=== PATIENT | female | born 1955 | race Caucasian/White ===

== ENCOUNTER → 2023-06-05 09:29 | Outpatient (REF) | payer MEDICARE, BC, SELFPAY | LOC: HWWDC 09:29 | PROVIDERS: ATTENDING PHYSICIAN Obstetrics & Gynecology Gynecology; FAMILY PHYSICIAN Family Medicine | DX: Z12.31 Encounter for screening mammogram for malignant neoplasm of breast (principal) | CPT/HCPCS: 77063; 77067 ==

== ENCOUNTER → 2023-07-22 08:53 | Outpatient (REF) | payer MEDICARE, BC, SELFPAY ==
[2023-07-22 13:08] LABS: ALT (SGPT) 22 U/L (0-35); AST (SGOT) 26 U/L (14-36); Albumin 4.1 g/dl (3.5-5.0); Alkaline Phosphatase 112 U/L (38-126); Blood Urea Nitrogen 15 mg/dl (7-17); Calcium 9.9 mg/dl (8.4-10.2); Carbon Dioxide 26 mmol/L (22-30); Chloride 100 mmol/L (98-107); Glucose 103 mg/dl (70-99); HDL Cholesterol 50 mg/dl; LDL Cholesterol, Calculated 101 mg/dl; Potassium 4.4 mmol/L (3.5-5.1); Sodium 137 mmol/L (135-145); Total Bilirubin 0.5 mg/dl (0.2-1.3); Total Cholesterol 193 mg/dl (50-199); Total Protein 7.1 g/dl (6.3-8.2); Triglyceride 214 mg/dl (10-149); Very Low Density Lipoprotein 42 mg/dl (0-30); eGFR > 60.00
[2023-07-23 14:33] LABS: Glycohemoglobin (HgbA1c) 5.9 % (4.0-5.6)
== END ==
LOC: HWLAB 08:53
PROVIDERS: ATTENDING PHYSICIAN Family Medicine
DX: I10 Essential (primary) hypertension (principal); R73.9 Hyperglycemia, unspecified; E87.6 Hypokalemia; Z00.00 Encounter for general adult medical examination without abnormal findings; R79.9 Abnormal finding of blood chemistry, unspecified; E78.2 Mixed hyperlipidemia
CPT/HCPCS: 36415; 80053; 80061; 83036

== ENCOUNTER 2023-09-21 23:37 | Inpatient (IN) | payer MEDICARE, BC, SELFPAY ==
[2023-09-21 14:31] VITALS: BP 140/90
[2023-09-21 14:43] LABS: % Basophils 0.1 % (0-2); % Eosinophils 0.3 % (0-6); % Immature Granulocytes 0.4 % (0-0.5); % Monocytes 8.4 % (1.7-9.3); % Neutrophils 84.8 % (42.2-75.2); Absolute Immature Granulocytes 0.1 10^3/uL (0-0.05); Absolute Lymphocytes 0.9 10^3/uL (1.2-3.4); Absolute Monocytes 1.3 10^3/uL (0.1-0.6); Absolute Neutrophils 13.1 10^3/uL (1.4-6.5); Hematocrit 37.5 % (37.0-47.0); Hemoglobin 13.1 g/dL (12.0-16.0); Mean Corp Hgb Conc. 34.9 g/dL (33.0-37.0); Mean Corpuscular Hgb 29.4 pg (27.0-31.0); Mean Corpuscular Volume 84.1 fL (81.0-99.0); Mean Platelet Volume 9.4 fL (7.4-10.4); Nucleated Red Blood Cells % 0 %; Platelet Count 295 10^3/uL (130-400); Red Blood Cell Count 4.46 10^6/uL (4.20-5.40); Red Cell Dist. Width 13.6 % (11.5-14.5); White Blood Cell Count 15.4 10^3/uL (4.8-10.8)
[2023-09-21 14:59] LABS: ALT (SGPT) 27 U/L (0-35); AST (SGOT) 32 U/L (14-36); Albumin 4.3 g/dl (3.5-5.0); Alkaline Phosphatase 121 U/L (38-126); Blood Urea Nitrogen 13 mg/dl (7-17); Calcium 9.5 mg/dl (8.4-10.2); Carbon Dioxide 24 mmol/L (22-30); Chloride 98 mmol/L (98-107); Glucose 123 mg/dl (70-99); Potassium 3.8 mmol/L (3.5-5.1); Sodium 133 mmol/L (135-145); Total Bilirubin 1.3 mg/dl (0.2-1.3); Total Protein 7.2 g/dl (6.3-8.2); eGFR > 60.00
[2023-09-21 16:19] LABS: Lipase 32 U/L (23-300)
--- NOTE | 2023-09-21 16:45 | ED.PDOC.TRB ---
ED Provider Triage
-
Patient seen by provider in Triage?: Seen in Triage
A medical screening examination has been initiated by a qualified medical provider. Based on the assessment performed at this time, it has been determined that an emergent medical condition may exist and the patient has been informed that further
medical evaluation and possible additional diagnostic testing may be needed.
This is a medical evaluation conducted in person to initiate diagnostic evaluation and provide initial therapeutics. Please see further documentation by the treating clinician.
GENERAL: Alert , in no apparent distress
EYE: No visual abnormalities
NECK: No visual changes
ENT: No visual abnormalities
CARDIAC:
LUNGS: Breathing normally
ABDOMEN:
NEUROLOGICAL: Alert and oriented, no visual focal neuro deficits
SKIN: Warm and dry, skin intact.
MUSCULOSKELETAL: No edema, well perfused. Moving normally
PSYCH: Normal and appropriate interaction.
HPI/RA Plan:
68-year-old female presenting to the emergency department today for concerns of suprapubic discomfort worsening over the past few days also with burning with urination. No fevers no chest pain or shortness of breath. No significant change in bowel
movements. Patient does have reproducible tenderness directly over the bladder. Plan to check urine and further assessment.
[2023-09-21 17:44] VITALS: BP 126/79
[2023-09-21 18:52] LABS: Urine Albumin Trace (Neg - Trace); Urine Bilirubin 1+ (Negative); Urine Character Very Cloudy (Clear); Urine Color Yellow; Urine Glucose Negative (Negative); Urine Ketone 2+ (Negative); Urine Leukocyte 2+ (Negative); Urine Nitrite Positive (Negative); Urine Occult Blood Trace (Negative); Urine Specific Gravity 1.015 (<1.030); Urine Urobilinogen 2+ (Neg - 1+)
[2023-09-21 18:56] VITALS: BMI 34.5
[2023-09-21 18:59] VITALS: BP 135/86
[2023-09-21 19:00] VITALS: BP 138/85
--- NOTE | 2023-09-21 19:07 | ED.GENMED ---
History of Present Illness
General
Chief Complaint: Abdominal Symptoms
Source: patient
Exam Limitations: none
Time Seen by Provider: 09/21/23 18:58
Nursing documentation reviewed up to this point in time: agreed with
History of Present Illness
History of Present Illness:
Patient to ED with complaint of lower abdominal pain. Pain started on Thursday and continues to worsen. Stated she first noticed pain across lower abdomen but now pain has migrated to RLQ. Reports burning with urination. States she has had UTI's
in the past but this feels much different. +nausea. No vomiting or diarrhea. [employer] chilled at home but did not take her temp. Brought self to ED for eval.
Past History
Past History
ED Past Medical History: HTN
ED Past Surgical History: Cholecystectomy, Gynecological (D&E miscarriage) and Other (blepharoplasty, right carpal tunnel release 2018)
Social History
Tobacco: Non-smoker
Alcohol: None
Personal:
Living: with family
Employment: Employed
Family History
Family History: CAD
Review of Systems
Review of Systems
Allergies reviewed?: Yes
All Other Systems: ROS reviewed and negative except as documented in HPI and ROS
Constitutional: Reports chills
EENT: Reports no symptoms
Respiratory: Reports no symptoms
Cardiac: Reports no symptoms
ABD/GI: Reports abdominal pain and nausea
: Reports dysuria
Musculoskeletal: Reports no symptoms
Skin: Reports no symptoms
Neurological: Reports no symptoms
Psychiatric: Reports no symptoms
Phy Exam
General Physical Exam
General Presentation: moderate distress
General age: appears stated age
General Skin: warm and dry
General Habitus: normal
General Mental: alert
Cardiovascular Exam
Cardiovascular Exam: regular rate/rhythm and no edema
Pulmonary Exam
Pulmonary Exam: no respiratory distress
Gastrointestinal Exam
Gastrointestinal Exam: normal bowel sounds, soft, no organomegaly, non distended, no cva tenderness and guarding (RLQ)
Palpation: left upper quadrant: No tenderness, left lower quadrant: Moderate tenderness, right upper quadrant: No tenderness and right lower quadrant: Moderate tenderness
Musculoskeletal Exam
Musculoskeletal Exam: full ROM and neuro vasc intact
Skin Exam
Skin Exam: normal color, warm/dry and no rash
Psychiatric Exam
Psychiatric Exam: normal mood/affect
Course
Orders/Labs/Results
Orders:
Orders
09/21/23 14:37
Complete Blood Count/With Diff Urgent
Comprehensive Metabolic Panel Urgent
Lipase Urgent
Urinalysis Reflex To Culture Urgent
Date Specimen was Collected: 09/21/23
Time Specimen was Collected: 14:33
Urine Microscopic Reflex Cult Urgent
Urine Culture Urgent
SKYLER Source: U
Specimen Description:
Date Specimen was Collected: 09/21/23
Time Specimen was Collected: 14:33
09/21/23 19:03
Iohexol [Omnipaque] See Protocol PO NOW STA
09/21/23 19:04
CT Abd/pel W Iv And Oral Contr Urgent
Comment:
Reason For Exam: RLQ pain
09/21/23 19:10
0.9% Sodium Chloride 1000 ml [Nss] 1,000 ml IV BOLUS
09/21/23 19:31
Lactic Acid Urgent
09/21/23 19:38
Ciprofloxacin HCl [Cipro] 500 mg PO NOW STA
09/21/23 21:20
Diphenhydramine [Benadryl] 50 mg IV NOW STA
Hydrocortisone Sod Succinate [Solu-Cortef] 200 mg IV NOW STA
09/21/23 22:37
0.9% Sodium Chloride 1000 ml [Nss] 1,000 ml IV BOLUS
HYDROmorphone [Dilaudid] 0.5 mg IV NOW STA
Ondansetron Injectable [Zofran] 4 mg IV NOW STA
09/21/23 22:38
MetroNIDAZOLE 500 MG/100 ML [Flagyl 500 mg] 100 ml IV NOW
09/21/23 22:47
Ipratropium/Albuterol Sulfate [Duoneb] 3 ml .ROUTE .STK-MED ONE
09/21/23 22:48
Ipratropium/Albuterol Sulfate [Duoneb] 3 ml INH R NOW ONE
09/21/23 23:17
Admit/Transfer Patient As Directed
Co-Sign Provider:
Level of Care: Inpatient admission
Assign to:: Telemetry
Physician / Group: Robbie
Diagnosis: Diverticulitis
Reason for Telemetry: Arrhythmia
Date to Stop Telemetry: 09/24/23
Time to Stop Telemetry: 11:00
Reason for Hospitalization: IV abx
Expected length of stay greater than two midnights?: Yes
ELOS- Estimated Length of Stay in days: 3
I certify the patient meets the requirements for IP care: Yes
PRN Pain Medication Management As Directed
May give lesser potent ordered pain med per pt: Yes
preference::
Protocol:: Medication orders for pain may be administered in a
manner that supports deferring to patient preference
when the pt is:
- Requesting an ordered lesser potent pain medication.
Least to most potent pain medications are defined
as: acetaminophen < NSAID < tramadol < opioids
(morphine, oxycodone, hydromorphone).
- Requesting a lesser dose of the same medication IF
ORDERED.
- Requesting a less intrusive route of administration
if both routes are prescribed by the provider (PO <
IV).
09/21/23 23:18
Code Status As Directed
Resuscitation Status: Full Code
09/21/23 23:24
ECG [Electrocardiogram (*1)] Urgent
Reason for Study: QTc Monitoring
09/24/23 11:00
DC Protocol for Telemetry ONCE
Abnormal Lab Results
09/21/23
14:37
WBC 15.4 H 10^3/uL
(4.8-10.8)
Abs Immat Gran (auto) 0.1 H 10^3/uL
(0-0.05)
Absolute Neuts (auto) 13.1 H 10^3/uL
(1.4-6.5)
Absolute Lymphs (auto) 0.9 L 10^3/uL
(1.2-3.4)
Absolute Monos (auto) 1.3 H 10^3/uL
(0.1-0.6)
Neutrophils % 84.8 H %
(42.2-75.2)
Lymphocytes % 6.0 L %
(20.5-51.1)
Sodium 133 L mmol/L
(135-145)
Glucose 123 H mg/dl
(70-99)
Urine Ketones 2+ A
(Negative)
Ur Occult Blood Reflex Trace A
(Negative)
Urine Nitrite (Reflex) Positive A
(Negative)
Urine Bilirubin 1+ A
(Negative)
Urine Urobilinogen 2+ A
(Neg - 1+)
Leukocyte Esterase Rfl 2+ A
(Negative)
Urine WBC (Reflex) >100 A /HPF
(0-5)
Urine Bacteria (Reflex) Many A
(Negative)
09/21/23 14:37
09/21/23 14:37
Vital Signs
Initial and Last Documented VS:
Initial Vital Signs
Temp Pulse Resp BP Pulse Ox
100.0 F 110 18 140/90 99
09/21/23 14:31 09/21/23 14:31 09/21/23 14:31 09/21/23 14:31 09/21/23 14:31
Last Documented Vital Signs
Temp Pulse Resp BP Pulse Ox
99.6 F 103 23 150/79 96
09/21/23 17:44 09/21/23 21:30 09/21/23 21:30 09/21/23 21:00 09/21/23 19:15
*Critical Care Note
Total Time (30-74mins, 75-104mins- exclusive of procedures): Not Applicable
Update Note
Update Note:
Patient to ED with complaint of lower abdominal pain R>L, nausea, painful urination, chills. Symptoms started on and continue to worsen. Labs reviewed. WBV 15.4 noted. Afebrile in dept. UTI noted on UA. Given dose of cipro. Lower
abdominal pain and RLQ guarding concerning, sent for CT. CT - Diverticulitis, possible small abscess vs fluid level noted. Will admit to hospitalist for UTI, Diverticulitis r/o abscess.
Notified by nursing - patient with shaking chills, HR 130's, tachypnea. Remains afebrile. 1L NSS infusing, duoneb given, as well as pain medications. Patient breathing improved. Pulse ox 97%2L NC, LCTA. Resting comfortably.
ED Attending Note
-
Portions of this chart may have been created with voice recognition software.� Occasional wrong word or��sound alike� substitutions may have occurred due to the inherent limitations of voice recognition software.
Discharge Plan
Departure
Patient Disposition: Admit
Date of Disposition: 09/21/23
Time of Disposition: 23:08
Presentation/result/management discussed w/ accepting MD/DO: Hospitalist
Condition: Fair
Covid-19: Not Applicable
Discharge Problem:
Acute UTI, Acute diverticulitis
Prescriptions:
No Action
fluticasone propionate 1 SPRAY spray,suspension
1 spray intranasal DAILYPRN PRN (Reason: allergies)
acetaminophen 325 MG tablet
650 mg PO Q4HPRN PRN (Reason: GARCIA, mild pain, or temp >100.4F) 0RF
cholecalciferol (vitamin D3) 2,000 UNITS tablet
2,000 units PO DAILY 0RF
aspirin [Adult Aspirin Regimen] 81 MG tablet,delayed release (DR/EC)
81 mg PO DAILY Qty: 1 0RF
Theragen Tablet
1 tab PO DAILY
valsartan-hydrochlorothiazide 320-25 mg Tablet
1 tab PO DAILY
omeprazole 20 mg Tablet,Delayed Release (Dr/Ec)
20 mg PO DAILY
potassium chloride 20 mEq Tablet Extended Release
20 meq PO DAILY
Referrals:
Josey Snyder MD [Family Provider] -
Interventions
Interventions:
*Risk Screen - Suicide Last Done: 09/21/23 14:31
*General Assessment Last Done: 09/21/23 14:31
*Neglect/Abuse Screening Last Done: 09/21/23 14:31
ED- Fall Risk Assessment Last Done: 09/21/23 18:56
*ED COVID-19 Vaccine History Last Done: 09/21/23 14:31
MF-Wqjkyi-Gimjmghbvb Assessment Last Done: 09/21/23 18:56
Discharge Date and Time
Print Language: GRENADIAN
[2023-09-21 19:20] LABS: Urine Bacteria Many (Negative); Urine Red Blood Cell 0-2 /HPF (0-2); Urine White Cell >100 /HPF (0-5)
[2023-09-21] MEDS: OMNIPAQUE 50 ML PO (19:29)
[2023-09-21] MEDS: NSS 1000 IV ×2 (19:33→22:45)
[2023-09-21 19:49] LABS: Lactic Acid 1.6 mmol/L (0.7-2.0)
[2023-09-21] MEDS: CIPRO 500 MG PO (19:59)
[2023-09-21 21:00] VITALS: BP 150/79
[2023-09-21] MEDS: BENADRYL 50 MG IV (21:26)
[2023-09-21] MEDS: SOLU-CORTEF 200 MG IV (21:26)
[2023-09-21] MEDS: FLAGYL 500 MG 100 IV (22:44)
[2023-09-21] MEDS: ZOFRAN 4 MG IV (22:45)
[2023-09-21] MEDS: DILAUDID 0.5 MG IV (22:46)
[2023-09-21] MEDS: DUONEB 3 ML INH (22:48)
--- NOTE | 2023-09-21 23:23 | HPS.HSE ---
Family Physician
-
Family Physician: Josey Snyder
Chief Complaint
-
abdominal pain
History of Present Illness
68-year-old female past medical history of hypertension presenting with lower abdominal pain which started 2 days ago and continues to worsen. Patient started across the lower abdomen but now is migrated across to the right lower quadrant. He has
burning with urination. She has nausea and an episode of vomiting today. No diarrhea. She did have chills but did not check her temperature. Denies chest pain or shortness of breath.
Denies smoking. Drinks alcohol occasionally.
Medical History
Past Medical History
Past Medical History: Reports Other (hypertension, GERD)
Past Surgical History: Reports Other (Cholecystectomy, Gynecological (D&E miscarriage) and Other (blepharoplasty, right carpal tunnel release 2018))
Social History
Tobacco: Non-smoker
Alcohol: Occasional
Drug: None
Family History
Family History: Not pertinent
Allergies / Home Medications
Allergies reflects when Allergies were last updated in [facility].
Home Medications with original date entered in [facility]
Allergy/Medication List:
Allergies
Allergy/AdvReac Type Severity Reaction Status Date / Time
shellfish derived Allergy Intermediate Hives Verified 09/21/23 14:31
Cephalosporins Allergy Unknown Rash Verified 09/21/23 14:31
penicillin G Allergy Unknown Rash Verified 09/21/23 14:31
Penicillins Allergy Unknown Rash Verified 09/21/23 14:31
Home Medications
fluticasone propionate 50 mcg/actuation nasal spray,suspension 1 spray intranasal DAILYPRN PRN allergies 03/16/21
acetaminophen 325 mg tablet 650 mg (2 x 325 mg) PO Q4HPRN PRN GARCIA, mild pain, or temp >100.4F 03/17/21
aspirin 81 mg tablet,delayed release (Adult Aspirin Regimen) 81 mg PO DAILY ##1 03/17/21
cholecalciferol (vitamin D3) 50 mcg (2,000 unit) tablet 2,000 units PO DAILY 03/17/21
omeprazole 20 mg tablet,delayed release 20 mg PO DAILY 09/21/23
potassium chloride 20 mEq tablet,extended release 20 meq PO DAILY 09/21/23
therapeutic multivitamin 1 tab PO DAILY 09/21/23
valsartan 320 mg-hydrochlorothiazide 25 mg tablet 1 tab PO DAILY 09/21/23
Review of Systems
-
History Source: Patient
A 12 point ROS was completed and negative except as noted: Yes
Constitutional: Reports No Symptoms
EENT: Reports No Symptoms
Respiratory: Reports No Symptoms
Cardiac: Reports No Symptoms
Abdomen/GI: Reports See HPI
: Reports No Symptoms
Musculoskeletal: Reports No Symptoms
Skin: Reports No Symptoms
Neurological: Reports No Symptoms
Endocrine: Reports No Symptoms
Hematologic/Lymphatic: Reports No Symptoms
Psych: Reports No Symptoms
Physical Exam
Vital Signs
Vital Signs
Temp Pulse Resp BP Pulse Ox
99.6 F 103 23 150/79 96
09/21/23 17:44 09/21/23 21:30 09/21/23 21:30 09/21/23 21:00 09/21/23 19:15
Physical Exam
General: Well Developed, Well Nourished and No Apparent Distress
HEENT: NormoCephalic, Moist mucous membranes and Atraumatic
Respiratory: Clear
Cardiac: S1/S2 and Regular Rhythm; No Murmur or Rub
GI: Non Distended, Normal Bowel Sounds and Tender (RLQ ); No Organomegaly
Rectal: Deferred by Provider
Musculoskeletal: No Clubbing, No Cyanosis and No Edema
Skin: No Rash
Neuro: Nonfocal/grossly intact
Laboratory Results
-
09/21/23 14:37
09/21/23 14:37
Laboratory Results
Lactic Acid 1.6 mmol/L (0.7-2.0) 09/21/23 19:31
Total Bilirubin 1.3 mg/dl (0.2-1.3) 09/21/23 14:37
AST 32 U/L (14-36) 09/21/23 14:37
ALT 27 U/L (0-35) 09/21/23 14:37
Alkaline Phosphatase 121 U/L (38-126) 09/21/23 14:37
Lipase 32 U/L (23-300) 09/21/23 14:37
Data Reviewed
-
Lab Data: Labs Reviewed by me
Old Records: Reviewed
Impression/Plan
-
IMPRESSION:
PLAN:
# Acute sigmoid diverticulitis associated with abscess
-CT abdomen pelvis shows acute sigmoid diverticulitis with possible small accompanying abnormal focal fluid collection
-IV fluids
-Levaquin/Flagyl
-N.p.o.
-Colorectal surgery consulted
# Urinary tract infection
-Urinalysis shows greater than 100 WBC
-Urine culture pending
-Zosyn
Essential hypertension
-continue valsartan/hydrochlorothiazide
GERD
-Continue omeprazole
Full code
DVT prophylaxis�Heparin
N.p.o.
[2023-09-21 23:37] VITALS: BP 109/66
[2023-09-22] VITALS (14 sets, daily range): BP systolic 86–130; BP diastolic 56–97; BMI 34.9
[2023-09-22] MEDS: HEPARIN 5000 UNITS SC ×4 (01:55→23:05)
[2023-09-22] MEDS: D5/0.45%NSS with KCL 10 MEQ 1000 IV ×3 (02:02→22:04)
--- NOTE | 2023-09-22 03:28 | PTCARENOTE ---
Rec'd patient from ED. Pt on monitor and storage bin tender in sinus tachycardia. Pt verbalized that abdominal pain and tenderness was at an acceptable level. RN oriented pt to unit and room. Pt resting in bed with call trejo in reach. Plan of care ongoing.
[2023-09-22 05:42] LABS: Hematocrit 37.1 % (37.0-47.0); Mean Corpuscular Volume 85.7 fL (81.0-99.0); Mean Platelet Volume 9.9 fL (7.4-10.4); Platelet Count 140 10^3/uL (130-400); Red Blood Cell Count 4.33 10^6/uL (4.20-5.40); Red Cell Dist. Width 13.7 % (11.5-14.5); White Blood Cell Count 18.3 10^3/uL (4.8-10.8)
[2023-09-22 05:46] LABS: Blood Urea Nitrogen 14 mg/dl (7-17); Calcium 8.1 mg/dl (8.4-10.2); Carbon Dioxide 20 mmol/L (22-30); Chloride 99 mmol/L (98-107); Estimated Creatinine Clearance 48 ml/min; Glucose 206 mg/dl (70-99); Potassium 3.4 mmol/L (3.5-5.1); Sodium 129 mmol/L (135-145); eGFR 49.31
[2023-09-22] MEDS: FLAGYL 500 MG 100 IV ×3 (05:54→22:04)
[2023-09-22 06:33] LABS: Hepatitis C Antibody Negative (Negative)
[2023-09-22] MEDS: PROTONIX 40 MG PO (07:45)
[2023-09-22] MEDS: LEVAQUIN 100 IV (07:45)
[2023-09-22] MEDS: ASPIR LOW (ENTERIC COATED) 81 MG PO (07:45)
--- NOTE | 2023-09-22 08:15 | PTCARENOTE ---
Addendum entered by Walter Salmeron RN 09/22/23 08:24:
Assumed care at 0700. Patient was sleeping soundly, pain right lower abdomen 1 out 10 with tenderness, hypoactive BS. NPO, Meds with sips of water. BP 96/59 in the left arm and 88/59 in the right arm, held Diovan per parameters. Denies
lightheadedness at present. Instructed to call for bathroom assistance.
Original Note:
Assumed care at 0700. Patient was sleeping soundly, pain left lower abdomen 1 out 10 with tenderness, hypoactive BS. NPO, Meds with sips of water. BP 96/59 in the left arm and 88/59 in the right arm, held Diovan per parameters. Denies
lightheadedness at present. Instructed to call for bathroom assistance.
--- NOTE | 2023-09-22 08:39 | CON.CRS ---
Consultation
-
Reason for Consultation: diverticulitis
Medical History
-
Chief Complaint: abdominal pain
History of Present Illness:
Patient is a 68-year-old female who came to the ER yesterday evening with 2 days of abdominal pain, particularly in the right lower quadrant, also nausea and admitted emesis with the oral contrast for the CT prep. Admits to chills but not fever.
Denied other symptoms. She was found to have leukocytosis with a white count of 15.4. She had a low-grade fever of 100.1. She underwent a CT scan of the abdomen pelvis in which the images and report available for review. I reviewed both. This
reveals evidence for sigmoid diverticulitis with inflammation. There is no free air. There is a small 2.4 cm centrally located fluid collection with an air-fluid level which may either be an abscess or a large diverticulum. No evidence for
obstruction. The patient has never had diverticulitis in the past. She did interestingly undergo a colonoscopy by me about a year ago in September 2022 which showed sigmoid diverticulosis and a benign hyperplastic polyp. She admits that today her
pain is somewhat better than yesterday. Her white count however has bumped up from 15.4-18.3. I was asked to see her for colorectal surgical opinion.
Past Medical History
Past Medical History: HTN and Other (GERD)
Past Surgical History: Cholecystectomy and Other (D&C; carpal tunnel release, blepharoplasty)
Social History
Tobacco: Non-Smoker
Alcohol: Occasional
Family History
Family History: Reviewed & Not Pertinent
Allergies / Home Medications
Allergy/AdvReac Type Severity Reaction Status Date / Time
shellfish derived Allergy Intermediate Hives Verified 09/21/23 14:31
Cephalosporins Allergy Unknown Rash Verified 09/21/23 14:31
erythromycin base Allergy Unknown Nausea / Verified 09/22/23 03:12
Vomiting
penicillin G Allergy Unknown Rash Verified 09/21/23 14:31
Penicillins Allergy Unknown Rash Verified 09/21/23 14:31
�Medication �Instructions �Recorded �Confirmed �Type
fluticasone propionate 50 1 spray intranasal DAILYPRN PRN 03/16/21 09/21/23 History
mcg/actuation nasal allergies
spray,suspension
acetaminophen 325 mg tablet 650 mg (2 x 325 mg) PO Q4HPRN PRN 03/17/21 09/21/23 Rx
GARCIA, mild pain, or temp >100.4F
aspirin 81 mg tablet,delayed 81 mg PO DAILY ##1 03/17/21 09/21/23 Rx
release (Adult Aspirin Regimen)
cholecalciferol (vitamin D3) 50 2,000 units PO DAILY 03/17/21 09/21/23 Rx
mcg (2,000 unit) tablet
omeprazole 20 mg tablet,delayed 20 mg PO DAILY 09/21/23 09/21/23 History
release
potassium chloride 20 mEq 20 meq PO DAILY 09/21/23 09/21/23 History
tablet,extended release
therapeutic multivitamin 1 tab PO DAILY 09/21/23 09/21/23 History
valsartan 320 1 tab PO DAILY 09/21/23 09/21/23 History
mg-hydrochlorothiazide 25 mg tablet
Review of Systems
-
A 10 point review of systems was completed, and was negative except as per HPI.
Physical Exam
Vital Signs
Temp 98.6 F 09/22/23 07:41
Pulse 92 09/22/23 07:45
Resp Rate 16 09/22/23 07:41
Blood pressure 88/56 09/22/23 07:45
SaO2 96 09/22/23 08:00
09/21/23 09/22/23 09/23/23
06:59 06:59 06:59
Actual Weight 89.3 kg
Body Mass Index (BMI) 34.9
Lab Results / Allergies
09/22/23 05:05
09/22/23 05:05
WBC 18.3 10^3/uL (4.8-10.8) H 09/22/23 05:05
Hgb 13.0 g/dL (12.0-16.0) 09/22/23 05:05
Hct 37.1 % (37.0-47.0) 09/22/23 05:05
Plt Count 140 10^3/uL (130-400) D 09/22/23 05:05
Abs Immat Gran (auto) 0.1 10^3/uL (0-0.05) H 09/21/23 14:37
Neutrophils % 84.8 % (42.2-75.2) H 09/21/23 14:37
Allergy/AdvReac Type Severity Reaction Status Date / Time
shellfish derived Allergy Intermediate Hives Verified 09/21/23 14:31
Cephalosporins Allergy Unknown Rash Verified 09/21/23 14:31
erythromycin base Allergy Unknown Nausea / Verified 09/22/23 03:12
Vomiting
penicillin G Allergy Unknown Rash Verified 09/21/23 14:31
Penicillins Allergy Unknown Rash Verified 09/21/23 14:31
Physical Exam
General: Well Developed
Respiratory: Clear
Cardiac: Regular Rhythm
GI: Soft, Non Distended and Tender (Mild to moderate right lower quadrant; no rebound or guarding)
Musculoskeletal: No Clubbing, No Cyanosis and No Edema
Neuro: AO x 3
Psych: Calm
Data Reviewed
-
CT Scan: Image Personally Visualized and interpreted, Report Reviewed by me and Discussed with Patient
Labs: Labs Reviewed by me and Discussed with Patient
Old Records: Reviewed
Assessment / Plan
-
68-year-old female with her first attack of sigmoid diverticulitis normal process that in my opinion would not be amenable to IR drainage. Discussed situation with the patient in detail. For now recommend continuing maximal medical measures
including IV resuscitation, diet restriction, and IV antibiotics. Will follow along closely. Obviously if she does not improve, repeat imaging plus minus surgical intervention may be necessary. The patient understands this.
Thanks.
--- NOTE | 2023-09-22 09:15 | W.PN.HOSP.TC ---
Today's Communication/Plan
-
Repeat BMP this evening. Adjust fluid and repleat electrolytes if needed
Assessment / Plan
Assessment / Plan
PLAN:
# Acute sigmoid diverticulitis associated with abscess
-CT abdomen pelvis shows acute sigmoid diverticulitis with possible small accompanying abnormal focal fluid collection
-IV fluids
-Levaquin/Flagyl
-N.p.o.
-WBC count trending in the wrong direction. 18.3 8/5. Monitor
-Colorectal surgery recommends monitoring rather than surgery
# Urinary tract infection
-Urinalysis shows greater than 100 WBC
-Urine culture pending
-On Levaquin
#Elevated Cr
-0.7 on admission. Today 1.6.
-Monitor BMP
#Electrolyte imbalance
-Na 133 on admission today 129
-K 3.8 on admission today 3.4
-hx of transient global amnesia due to low K in the past -
- On 20mEq Kcl daily
- Likely due to IV fluids
--Urine osm normals and urine Na slightly elevated
-Repeat BMP tonight
-Will adjust fluid accordingly
#Essential hypertension
-episode of hypotension this morning /56 -- hold valsartan/hydrochlorothiazide -- consider d/c HCTZ
#GERD
-Continue omeprazole
Full code
DVT prophylaxis�Heparin
N.p.o.
Anticipated Discharge: 24 - 48 hours
Subjective/Interval History
-
Date of Service: September 22, 2023
Objective Data
-
Labs:
Laboratory Results
09/22/23
05:05
WBC 18.3 H
Hgb 13.0
Hct 37.1
Plt Count 140 D
Sodium 129 L
Potassium 3.4 L
Chloride 99
Carbon Dioxide 20 L
BUN 14
Creatinine 1.2 H
Glucose 206 H
Calcium 8.1 L
Vital Signs:
Vital Signs
Temp Pulse Resp BP Pulse Ox
98.6 F 95 16 105/64 96
09/22/23 07:41 09/22/23 09:00 09/22/23 07:41 09/22/23 08:51 09/22/23 08:00
I&O
09/21/23 09/22/23 09/23/23
06:59 06:59 06:59
Intake Total 100 / 100
Balance 100 / 100
Review of Systems
-
History Source: Patient
Respiratory: Reports No Symptoms
Cardiac: Reports No Symptoms
Abdomen/GI: Reports Abdominal Pain
Genitourinary: Reports No Symptoms
Neuro: Reports No Symptoms
Physical Exam
-
General: No Apparent Distress
Respiratory: Clear to Auscultation
Cardiac: Regular Rhythm and S1/S2
GI: Soft, Normal Bowel Sounds and Tender (RLQ Tenderness)
Musculoskeletal: No Edema
Neuro: AO x 3
Psych: Calm
--- NOTE | 2023-09-22 09:46 | W.PN.UPDATE ---
Update Note
Progress Note Update
I saw and evaluated the patient. I reviewed the resident�s note and agree with findings and plan as documented in the resident�s note.
Patient presents with first episode of acute sigmoid diverticulitis with possible small accompanying abnormal focal fluid collection (2.4 cm) such as an abscess versus air-fluid level within a large diverticulum. She is tender in the left lower
quadrant area without rebound guarding rigidity. She meets SIRS criteria and with diverticulitis meets the criteria for sepsis. Blood pressure stable.
Patient not nauseous or having any emesis. In view of pain and tenderness in the left lower quadrant we will keep her n.p.o. but will provide her with sips of clears for now. Continue with IV fluids and empiric antibiotics. Await surgery input.
Patient does have abnormal urine analysis and she does have dysuria since the weekend. Unclear if there is a UTI or bladder irritation from the adjacent sigmoid diverticulitis. Urine culture pending. On empirical antibiotics which I would
continue.
Fatty liver noted-patient denies any significant use of alcohol. Not a known diabetic. LFTs are normal but has bilirubin in the urine which raises concern for patellar biliary dysfunction. Will refer to GI as an outpatient.
KARINE evident-increased creatinine since admission noted. Patient does have some retentive symptoms with the dysuria. Check bladder scan. Continue IV fluids and follow creatinine closely. Creatinine evaluation too quick for IV contrast etiology.
Hyponatremia-check urine lites
Hypokalemia-replete potassium
Total time spent on today's encounter was 52 minutes which included time spent in counseling the patient regarding diagnosis and treatment plan as listed above, goals of care, and symptom management. Case was discussed with nursing staff,
specialists . All labs and imaging personally reviewed by me. Remainder the time spent in detailed review of previous records, lab data, imaging, and other medical provider documentation.
[2023-09-22] MEDS: KCL 40 MEQ PO (10:25)
--- NOTE | 2023-09-22 10:35 | PTCARENOTE ---
Bladder scan 164, has not voided since early am. Abdominal tenderness b/l. 40 mEq of PO K-Dur given
[2023-09-22 11:57] LABS: Osmolality Urine 843 mOsm/kg (300-900)
[2023-09-22 12:05] LABS: Urine Sodium 95 mmol/L (30-90)
--- NOTE | 2023-09-22 14:12 | CM ---
spoke with pt in room, she is prev indep, lives with her husb in a split level home with 1 step to enter. she enies any dme's or dc planning needs. plan is for dc to home when medically stable.
[2023-09-22] MEDS: TYLENOL 650 MG PO ×2 (15:18→20:29)
[2023-09-22 18:40] LABS: Blood Urea Nitrogen 14 mg/dl (7-17); Calcium 8.5 mg/dl (8.4-10.2); Carbon Dioxide 19 mmol/L (22-30); Chloride 103 mmol/L (98-107); Estimated Creatinine Clearance 71 ml/min; Glucose 118 mg/dl (70-99); Potassium 3.8 mmol/L (3.5-5.1); Sodium 129 mmol/L (135-145); eGFR > 60.00
[2023-09-23 04:05] VITALS: BP 135/82
[2023-09-23] MEDS: TYLENOL 650 MG PO ×3 (04:28→23:04)
[2023-09-23 04:38] LABS: % Basophils 0.2 % (0-2); % Eosinophils 0.6 % (0-6); % Immature Granulocytes 0.4 % (0-0.5); % Lymphocytes 6.1 % (20.5-51.1); % Monocytes 10.5 % (1.7-9.3); % Neutrophils 82.2 % (42.2-75.2); Absolute Eosinophils 0.1 10^3/uL (0-0.7); Absolute Lymphocytes 0.6 10^3/uL (1.2-3.4); Absolute Neutrophils 8.2 10^3/uL (1.4-6.5); Hematocrit 31.9 % (37.0-47.0); Hemoglobin 11.4 g/dL (12.0-16.0); Mean Corp Hgb Conc. 35.7 g/dL (33.0-37.0); Mean Corpuscular Hgb 29.4 pg (27.0-31.0); Mean Corpuscular Volume 82.2 fL (81.0-99.0); Mean Platelet Volume 10.4 fL (7.4-10.4); Nucleated Red Blood Cells % 0 %; Platelet Count 166 10^3/uL (130-400); Red Blood Cell Count 3.88 10^6/uL (4.20-5.40); Red Cell Dist. Width 13.7 % (11.5-14.5); White Blood Cell Count 9.9 10^3/uL (4.8-10.8)
[2023-09-23 05:03] LABS: Blood Urea Nitrogen 9 mg/dl (7-17); Calcium 8.6 mg/dl (8.4-10.2); Carbon Dioxide 23 mmol/L (22-30); Chloride 107 mmol/L (98-107); Estimated Creatinine Clearance 95 ml/min; Glucose 152 mg/dl (70-99); Potassium 3.9 mmol/L (3.5-5.1); Sodium 135 mmol/L (135-145); eGFR > 60.00
[2023-09-23] MEDS: FLAGYL 500 MG 100 IV (06:07)
--- NOTE | 2023-09-23 06:20 | PTCARENOTE ---
Pt c/o mild frontal GARCIA Tylenol PRN given and effective. Post void residual 147ml.
[2023-09-23 07:07] VITALS: BP 138/80
[2023-09-23 07:08] VITALS: BMI 34.6
[2023-09-23] MEDS: HEPARIN 5000 UNITS SC ×3 (08:13→23:05)
[2023-09-23] MEDS: ASPIR LOW (ENTERIC COATED) 81 MG PO (08:13)
[2023-09-23] MEDS: PROTONIX 40 MG PO (08:13)
[2023-09-23] MEDS: LEVAQUIN 100 IV (08:14)
--- NOTE | 2023-09-23 09:14 | W.PN.CRS1 ---
Today's Communication / Plan
-
Cont NPO
Assessment/Plan
-
68-year-old female with PMH of HTN, GERD who presents with abdominal pain associated with nausea, temp of 100.1, WBC 15.4, CT showing acute diverticulitis with 2.4 cm collection, concerning for abscess versus large diverticulum, being treated
nonoperatively with bowel rest and IV antibiotics
AFVSS
WBC 9.9 from 18.3
� Diverticulitis with likely 2.4 cm abscess (versus large diverticulum); continue nonoperative management, no acute surgical intervention currently indicated
�Due to significant pain on exam still, continue bowel rest with n.p.o. and IVF
� Continue pain control with Tylenol and Dilaudid as needed
� Continue antibiotics with IV Levaquin and Flagyl
� Encourage OOB and IS
� Continue DVT PPx with subcu heparin
� Continue home meds
� Appreciate hospitalist
Subjective Data
Subjective Data
Date of Service: September 23, 2023
No overnight events.
Pain still bothersome, but significantly improved.
Denies nausea/vomiting. Currently n.p.o.
+flatus +BMs +voiding
Objective Data
-
Vital Signs
Temp Pulse Resp BP Pulse Ox
98.4 F 92 16 138/80 97
09/23/23 07:05 09/23/23 07:15 09/23/23 07:05 09/23/23 07:07 09/23/23 07:06
Intake & Output
09/22/23 09/23/23 09/24/23
06:59 06:59 06:59
Intake Total 2820 / 2820
Output Total 1101 / 1101 400 / 400
Balance 1719 / 1719 -400 / -400
Intake:
Oral fluids 20 / 20
IV fluids (Total) 2400 / 2400
D5/0.45%NSS with KCL 10 MEQ 10 2400 / 2400
meq In 1,000 ml @ 100 mls/hr IV
.Q10H [facility] Rx#:[id number]
IV piggybacks 400 / 400
Output:
Urine, Voided 1101 / 1101 400 / 400
Lab Results
09/23/23 04:14
09/23/23 04:14
Physical Exam
-
General: No Acute Distress and AOx3
HEENT: Grossly Normal
Abdomen: Soft, Non Distended, Tender (Mildly to moderately tender in the suprapubic to RLQ), No Guarding and No Rebound
Neurological: No Motor Deficits
Skin: Warm and Dry
--- NOTE | 2023-09-23 09:15 | W.PN.HOSP.TC ---
Today's Communication/Plan
-
Low-dose oral Augmentin today, tomorrow high-dose Augmentin per ID. Continue to monitor diverticulitis symptoms
Assessment / Plan
Assessment / Plan
PLAN:
# Acute sigmoid diverticulitis associated with abscess
-CT abdomen pelvis shows acute sigmoid diverticulitis with possible small accompanying abnormal focal fluid collection
-IV fluids
-Levaquin/Flagyl d/c per ID
-N.p.o.
-WBC count trending well. 9.9 09/20. Monitor
-Colorectal surgery recommends monitoring rather than surgery
# Urinary tract infection
-Urinalysis shows greater than 100 WBC
-Urine culture showed E. coli resistant to cipro, sensitive to penicillin and cephalosporins which the pt noted allergies to -- ID consulted -- ID assessed allergy history and deemed it okay to start pt on Augmentin today at lower dose -- monitor --
give Augmentin at higher dose tomorrow depending of she has a reaction today
-Levaquin/Flagyl d/c per ID
#Elevated Cr
-resolved
-Monitor BMP
#Electrolyte imbalance
-resolved
-Monitor BMP
#Essential hypertension
-episode of hypotension this 09/22 87/56 -- hold valsartan/hydrochlorothiazide -- monitor
#GERD
-Continue omeprazole
Full code
DVT prophylaxis�Heparin
N.p.o.
Anticipated Discharge: 24 - 48 hours
Subjective/Interval History
-
Date of Service: September 23, 2023
Objective Data
-
Labs:
Laboratory Results
09/23/23
04:14
WBC 9.9
Hgb 11.4 L
Hct 31.9 L
Plt Count 166
Sodium 135
Potassium 3.9
Chloride 107
Carbon Dioxide 23
BUN 9
Creatinine 0.6
Glucose 152 H
Calcium 8.6
Vital Signs:
Vital Signs
Temp Pulse Resp BP Pulse Ox
98.4 F 92 16 138/80 97
09/23/23 07:05 09/23/23 07:15 09/23/23 07:05 09/23/23 07:07 09/23/23 07:06
I&O
09/22/23 09/23/23 09/24/23
06:59 06:59 06:59
Intake Total 2820 / 2820
Output Total 1101 / 1101 400 / 400
Balance 1719 / 1719 -400 / -400
Review of Systems
-
History Source: Patient
EENT: Reports No Symptoms Reported
Respiratory: Reports No Symptoms
Cardiac: Reports No Symptoms
Abdomen/GI: Reports Abdominal Pain and Nausea; Denies Vomiting
Genitourinary: Reports No Symptoms
Neuro: Reports No Symptoms
Physical Exam
-
General: Comfortable
Respiratory: Clear to Auscultation
Cardiac: Regular Rhythm and S1/S2
GI: Soft and Tender (RLQ tender)
Musculoskeletal: No Edema
Skin: Warm and Dry
Neuro: AO x 3
Psych: Calm
[2023-09-23] MEDS: D5/0.45%NSS with KCL 10 MEQ 1000 IV (09:17)
--- NOTE | 2023-09-23 09:32 | W.PN.UPDATE ---
Update Note
Progress Note Update
I saw and evaluated the patient. I reviewed the resident�s note and agree with findings and plan as documented in the resident�s note.
Patient feels her abdominal pain is improved but not gone. Had couple of loose small bowel movement today. No nausea vomiting.
Resolved dysuria.
No fever or chills.
Afebrile.
Heart rate 82 on the monitor currently.
Hemodynamically stable.
Abdomen exam shows still persistent tenderness in the left lower quadrant but no rebound guarding rigidity.
White count normalized. Some improvement in the pain noted but still with persistent tenderness.
Continue with medical management acute diverticulitis. Surgery input from today noted.
She has concurrent acute UTI with E. coli.
E. coli is isolated from urine specimen which is resistant to Cipro. Patient has significant allergies to penicillin and cephalosporin. Called lab and they did not run Levaquin sensitivities on the specimen. They now have to isolate E. coli and
tested again which would take 2 days. I will consult ID with antibiotic management.
DW ID
Tx to med surg.
Total time spent on today's encounter was 52 minutes which included time spent in counseling the patient/family regarding diagnosis and treatment plan as listed above, goals of care, and symptom management. Case was discussed with nursing staff,
specialists . All labs and imaging personally reviewed by me. Remainder the time spent in detailed review of previous records, lab data, imaging, and other medical provider documentation.
--- NOTE | 2023-09-23 10:44 | CM ---
CM following for DC planning needs.
Met w/ patient at bedside. Reviewed role of CM.
Pt. resides w/ spouse in a private, split level home. Functionally, patient is indep. w/ ADLs, mobility.
Anticipated DC plan is for home, no needs.
Will cont. to follow.
[2023-09-23 11:25] VITALS: BP 152/93
--- NOTE | 2023-09-23 11:42 | CON.ID ---
Consultation
-
Date/Time Consultation Requested: 09/23/23 9:39
Date/Time Consultation Performed: 09/23/23 11:46
Requesting Provider: Dr Christianson
Performing Provider: Dr Hinson
Reason for Consultation: ABX choice recs
Chief Complaint / Past History
Chief Complaint
abdominal pain
History of Present Illness
Ms Sullivan is a 68 year old female with history notable for cholecystectomy who presented here 09/20 for a 2 day history of increasing lower abdominal pain in the right lower quadrant (denies LLQ tenderness during my interview), nausea with vomiting, no
diarrhea. +chills and did not check her temperature. Also reporting dysuria. No chest pain or shortness of breath. No previous history of diverticulitis. Colonoscopy 1 year ago with diverticulitis and single polyp.
Reports penicillin allergy was as a child, she cannot recall the reaction, she was told there was rash, nothing more. She thinks she has tolerated amoxicillin as an adult. I called her pharmacy [facility] they can only go back one year, no
history of filling a script for a penicillin in that time.
She is on valsartan/HcTz and potassium replacement 20 mg PO qday.
Since arrival here she has been afebrile, bp initially hypotensive now stabilized, intermittent minimal tachycardia, wbc on arrival 15.4, yesterday 18 and today 9.9, hgb now 11.4, plt 166, L shift was present on arrival and has persisted, eos are
present, cr on arrival 1.2 and now 0.6, lactic acid 1.6, t bili 1.3, ast 32, alt 27, alk phos 121, CT a/p with IV and oral contrast: diverticulitis with 2.4 cm abscess vs air fluid level in large diverticulum, fatty liver, urine culture with 100K E
coli resistant to ciprofloxacin. She was started initially on ciprofloxacin/metro then switched to levofloxacin and metronidazole. Seen by colorectal surgery and no plans for surgery,
Past History
Additional Past Medical History:
hypertension, GERD
Additional Past Surgical History:
Cholecystectomy, Gynecological (D&E miscarriage) and Other (blepharoplasty, right carpal tunnel release 2018
Allergy History:
shellfish derived Allergy (Intermediate, Verified 09/21/23 14:31)
Hives
Cephalosporins Allergy (Unknown, Verified 09/21/23 14:31)
Rash
erythromycin base Allergy (Unknown, Verified 09/22/23 03:12)
Nausea / Vomiting
penicillin G Allergy (Unknown, Verified 09/21/23 14:31)
Rash
Penicillins Allergy (Unknown, Verified 09/21/23 14:31)
Rash
Medications Reviewed: Yes
Social History
Tobacco: Non-Smoker
Alcohol: Occasional
Drug: None
Family History
Family History: Not Pertinent
Review of Systems
Review of Systems
General: Chills; Negative Fever
All systems: All other systems were reviewed and were negative
Vital Signs
Temp Pulse Resp BP Pulse Ox
98.6 F 85 16 138/80 98
09/23/23 11:23 09/23/23 11:23 09/23/23 11:23 09/23/23 07:07 09/23/23 11:23
Physical Exam
Physical Exam
Constitutional: No Acute Distress
Cardiovascular: Regular Rate and S1/S2; Negative Murmur or Rub
Pulmonary: Clear and Symmetric; Negative Wheezes, Rales or Rhonchi
Gastrointestinal: Soft, Tender (RLQ), Non Distended and Normal Bowel Sounds
Skin: Warm and Dry; Negative Rash or Jaundice
Lab / Diagnostic Study Results
09/23/23 04:14
09/23/23 04:14
Abs Immat Gran (auto) 0.0 10^3/uL (0-0.05) 09/23/23 04:14
Absolute Neuts (auto) 8.2 10^3/uL (1.4-6.5) H 09/23/23 04:14
Absolute Lymphs (auto) 0.6 10^3/uL (1.2-3.4) L 09/23/23 04:14
Absolute Monos (auto) 1.0 10^3/uL (0.1-0.6) H 09/23/23 04:14
Absolute Basos (auto) 0.0 10^3/uL (0-0.2) 09/23/23 04:14
Immature Gran % 0.4 % (0-0.5) 09/23/23 04:14
Neutrophils % 82.2 % (42.2-75.2) H 09/23/23 04:14
Lymphocytes % 6.1 % (20.5-51.1) L 09/23/23 04:14
Monocytes % 10.5 % (1.7-9.3) H 09/23/23 04:14
Eosinophils % 0.6 % (0-6) 09/23/23 04:14
Basophils % 0.2 % (0-2) 09/23/23 04:14
Lactic Acid 1.6 mmol/L (0.7-2.0) 09/21/23 19:31
Microbiology Results
Micro:
09/21/23 14:37 Urine Culture - Final
Urine Escherichia coli
Assessment / Plan
Diverticulitis - first episode
Possible 2.4 cm diverticular abscess vs fluid filled diverticulum
H/o Penicillin allergy rash
Patient denies a history of cephalosporin allergy - removed
- urine culture with 100 K E coli resistant to ciprofloxacin, sensitive to ampicillin, bactrim, doxycycline
- I personally try to avoid using a quinolone when another agent in this class is resistant due to theoretical concern of emerging resistance
- at home on combination valsartan/hctz 320/25 and K 20 meq q day; currently on valsartan only
- patient >10 years since the reaction which is unknown rash, believes she has tolerated amoxicillin as an adult. We will trial augmentin, is she develops hives or a rash then next alternative would be bactrim/metronidazole and holding the Hctz/K
as her BP is relatively controlled on the losartan only here.
- for ease of timing today, I have started with the 500/125 mg dose q8 hrs today, tomorrow AM if tolerating it will switch to the 875/125 bid for a 14 day course
- follow clinically overnight
[2023-09-23] MEDS: ZOFRAN 4 MG IV (12:31)
[2023-09-23 15:05] VITALS: BP 157/94
[2023-09-23] MEDS: AUGMENTIN 500 MG/125 MG 1 TABLET PO ×2 (15:52→23:04)
--- NOTE | 2023-09-23 18:30 | PTCARENOTE ---
Pt c/o of nausea today relieved with Zofran. Pt tolerating sips of H2O. C/o of right lower quad tenderness with palpitation. Pt states she continues with small amounts of loose BMs. OOB to the bathroom independently, gait steady.
[2023-09-23] MEDS: NSS 1000 IV (18:35)
[2023-09-23 19:30] VITALS: BP 135/64
[2023-09-23 23:02] VITALS: BP 141/99
--- NOTE | 2023-09-23 23:30 | PTCARENOTE ---
Pt. received at change of shift. VSS with HR in 80s. Pt complaining of 3/10 abdominal pain for which Tylenol was administered, see MAR. Patient denies nausea at this time but does report episodes of loose stool. NSS currently infusing at
80ml/hr. Plan of care discussed and pt. verbalizes understanding. Ambulating independently without difficulty in room. Pt. remains NPO but tolerating sips of clears with medications. Can make needs known. Call trejo within reach.
[2023-09-24] MEDS: TYLENOL 650 MG PO (03:36)
[2023-09-24] MEDS: ZOFRAN 4 MG IV (03:36)
[2023-09-24 03:38] VITALS: BMI 34.2
[2023-09-24 03:42] VITALS: BP 137/70
[2023-09-24 04:30] LABS: % Basophils 0.2 % (0-2); % Eosinophils 0.6 % (0-6); % Immature Granulocytes 0.6 % (0-0.5); % Lymphocytes 10.7 % (20.5-51.1); % Monocytes 9.5 % (1.7-9.3); % Neutrophils 78.4 % (42.2-75.2); Absolute Eosinophils 0.1 10^3/uL (0-0.7); Absolute Immature Granulocytes 0.1 10^3/uL (0-0.05); Absolute Lymphocytes 0.9 10^3/uL (1.2-3.4); Absolute Monocytes 0.8 10^3/uL (0.1-0.6); Absolute Neutrophils 6.8 10^3/uL (1.4-6.5); Hematocrit 31.9 % (37.0-47.0); Hemoglobin 11.2 g/dL (12.0-16.0); Mean Corp Hgb Conc. 35.1 g/dL (33.0-37.0); Mean Corpuscular Hgb 30.1 pg (27.0-31.0); Mean Corpuscular Volume 85.8 fL (81.0-99.0); Mean Platelet Volume 10.2 fL (7.4-10.4); Nucleated Red Blood Cells % 0 %; Platelet Count 184 10^3/uL (130-400); Red Blood Cell Count 3.72 10^6/uL (4.20-5.40); Red Cell Dist. Width 13.3 % (11.5-14.5); White Blood Cell Count 8.6 10^3/uL (4.8-10.8)
[2023-09-24] MEDS: NSS 1000 IV (04:53)
[2023-09-24 04:56] LABS: ALT (SGPT) 22 U/L (0-35); AST (SGOT) 17 U/L (14-36); Albumin 2.9 g/dl (3.5-5.0); Alkaline Phosphatase 133 U/L (38-126); Blood Urea Nitrogen 6 mg/dl (7-17); Calcium 8.9 mg/dl (8.4-10.2); Carbon Dioxide 23 mmol/L (22-30); Chloride 105 mmol/L (98-107); Estimated Creatinine Clearance 94 ml/min; Glucose 108 mg/dl (70-99); Potassium 3.4 mmol/L (3.5-5.1); Sodium 135 mmol/L (135-145); Total Bilirubin 0.4 mg/dl (0.2-1.3); Total Protein 5.4 g/dl (6.3-8.2); eGFR > 60.00
--- NOTE | 2023-09-24 07:24 | PTCARENOTE ---
K+ resulted 3.4 with AM labs down from 3.9 yesterday morning. [employer] made aware. Order for repeat BMP at 1200 added.
[2023-09-24 07:30] VITALS: BP 135/82
[2023-09-24] MEDS: PROTONIX 40 MG PO (07:53)
[2023-09-24] MEDS: ASPIR LOW (ENTERIC COATED) 81 MG PO (07:53)
[2023-09-24] MEDS: AUGMENTIN 875 MG/125 MG 1 TABLET PO ×2 (07:54→20:11)
[2023-09-24] MEDS: HEPARIN 5000 UNITS SC ×3 (07:54→23:20)
--- NOTE | 2023-09-24 08:18 | W.PN.HOSP.TC ---
Today's Communication/Plan
-
Clear liquid diet. Continue Augmentin.
Assessment / Plan
Assessment / Plan
PLAN:
# Acute sigmoid diverticulitis associated with abscess
-CT abdomen pelvis shows acute sigmoid diverticulitis with possible small accompanying abnormal focal fluid collection
-IV fluids
-Levaquin/Flagyl d/c per ID
-Clear liquid diet
-WBC count trending well. 8.6 09/20. Monitor
-Colorectal surgery recommends monitoring rather than surgery
# Urinary tract infection
-Urinalysis shows greater than 100 WBC
-Urine culture showed E. coli resistant to cipro, sensitive to penicillin and cephalosporins which the pt noted allergies to -- ID consulted -- ID assessed allergy history and deemed it okay to start pt on Augmentin today at lower dose -- monitor --
give Augmentin at higher dose today as pt had no hives, rash, SOB last yesterday
-Levaquin/Flagyl d/c per ID
#Headache
-Pt has history of sinus headache and caffeine use -- threw up last night -- pt believes its due to headache -- diet changed to clear liquids -- assess if caffeine intake helps
#Elevated Cr
-resolved
-Monitor BMP
#Electrolyte imbalance
-K 3.4 -- repleat
-Monitor BMP
#Essential hypertension
-episode of hypotension this 09/22 87/56 -- hold valsartan/hydrochlorothiazide -- monitor
#GERD
-Continue omeprazole
Full code
DVT prophylaxis�Heparin
N.p.o.
Anticipated Discharge: 24 - 48 hours
Subjective/Interval History
-
Date of Service: September 24, 2023
Objective Data
-
Labs:
Laboratory Results
09/24/23 09/24/23
03:52 12:00
WBC 8.6
Hgb 11.2 L
Hct 31.9 L
Plt Count 184
Sodium 135 Pending
Potassium 3.4 L Pending
Chloride 105 Pending
Carbon Dioxide 23 Pending
BUN 6 L Pending
Creatinine 0.6 Pending
Glucose 108 H Pending
Calcium 8.9 Pending
Total Bilirubin 0.4
AST 17
ALT 22
Alkaline Phosphatase 133 H
Vital Signs:
Vital Signs
Temp Pulse Resp BP Pulse Ox
98.1 F 79 18 137/70 97
09/24/23 07:32 09/24/23 07:32 09/24/23 07:32 09/24/23 03:42 09/24/23 07:32
I&O
09/23/23 09/24/23 09/25/23
06:59 06:59 06:59
Intake Total 2820 / 2820
Output Total 1101 / 1101 400 / 400
Balance 1719 / 1719 -400 / -400
Review of Systems
-
History Source: Patient
EENT: Reports No Symptoms Reported
Respiratory: Reports No Symptoms
Cardiac: Reports No Symptoms
Abdomen/GI: Reports Abdominal Pain and Vomiting
Genitourinary: Reports No Symptoms
Neuro: Reports Headache
Physical Exam
-
General: Well Developed
Respiratory: Clear to Auscultation
Cardiac: Regular Rhythm and S1/S2
GI: Soft, Nondistended and Tender (RLQ)
Musculoskeletal: No Edema
Neuro: AO x 3
Psych: Calm
--- NOTE | 2023-09-24 09:28 | W.PN.ID1 ---
Date of Service
Date of Service: September 24, 2023
Today's Communication
- tolerating Augmentin switched to the 875/125 bid for a 28 day course through 10/19
Assessment / Plan
Diverticulitis - first episode
Possible 2.4 cm diverticular abscess vs fluid filled diverticulum
<del>H/o</del> <del>Penicillin</del> <del>allergy</del> <del>rash</del>
- urine culture with 100 K E coli resistant to ciprofloxacin, sensitive to ampicillin, bactrim, doxycycline
- I personally try to avoid using a quinolone when another agent in this class is resistant due to theoretical concern of emerging resistance
- at home on combination valsartan/hctz 320/25 and K 20 meq q day; currently on valsartan only
- tolerating Augmentin switched to the 875/125 bid for a 28 day course
- allergy removed from [facility], notified pcp as well of the successful result
- follow up with colorectal surgery
Chief Complaint
-: Other (diverticulitis and possible abscess)
Subjective / Review of Systems
remains afebrile
bp stable
loose stool reported
abdominal pain resolved
some nausea yesterday resolved today
no rashes
Vital Signs / Physical Exam
Vital Signs
Vital Signs
Temp Pulse Resp BP Pulse Ox
98.1 F 79 18 135/82 98
09/24/23 07:32 09/24/23 07:32 09/24/23 07:32 09/24/23 07:30 09/24/23 08:00
Physical Exam
Constitutional: No Acute Distress
Cardiovascular: Regular Rate and S1/S2; Negative Murmur or Rub
Pulmonary: Clear and Symmetric; Negative Wheezes or Rales
Gastrointestinal: Soft, Tender (minimal tenderness in the RLQ - markedly improved compared to yesterday), Non Distended and Normal Bowel Sounds
Skin: Warm and Dry; Negative Rash or Jaundice
Neurological: Awake
Objective Data
Lab Data
Lab Results
09/24/23 03:52
Estimated Creat Clear 94 ml/min 09/24/23 03:52
Lactic Acid 1.6 mmol/L (0.7-2.0) 09/21/23 19:31
Total Bilirubin 0.4 mg/dl (0.2-1.3) 09/24/23 03:52
AST 17 U/L (14-36) 09/24/23 03:52
ALT 22 U/L (0-35) 09/24/23 03:52
Alkaline Phosphatase 133 U/L (38-126) H 09/24/23 03:52
Most recent labs reviewed.
Micro Results:
09/21/23 14:37 Urine Culture - Final
Urine Escherichia coli
Care Review
Plan reviewed with: Physician (Claudio - left tiger text message re amox challenge)
--- NOTE | 2023-09-24 10:12 | W.PN.UPDATE ---
Update Note
Progress Note Update
Seen and examined by me independently in collaboration with the regional medical director Sofy.
Lab data and imaging data reviewed.
Patient feeling improved with less abdominal pain. She had some crampiness when she had a bowel movement. No nausea vomiting. No chills or fevers.
Abdomen soft with improved tenderness in the left lower quadrant area today.
White count still remains normal.
Did not develop any reactions/rash to amoxicillin challenge so far.
Improving sigmoid diverticulitis-advance diet per surgery.
With no anaphylaxis/cutaneous/GI reactions to amoxicillin we will increase Augmentin dose to regular strength. Appreciate ID input. If no further reactions might remove the penicillin as allergy.
[2023-09-24] MEDS: KCL 40 MEQ PO (10:27)
--- NOTE | 2023-09-24 13:01 | W.PN.CRS1 ---
Today's Communication / Plan
-
clear liquids (possible full liquids later)
Assessment/Plan
-
68-year-old female with PMH of HTN, GERD who presents with abdominal pain associated with nausea, temp of 100.1, WBC 15.4, CT showing acute diverticulitis with 2.4 cm collection, concerning for abscess versus large diverticulum, being treated
nonoperatively with bowel rest and IV antibiotics
AFVSS
WBC normal for 2 days
� Diverticulitis with likely 2.4 cm abscess (versus large diverticulum); continue nonoperative management, no acute surgical intervention currently indicated
�clinically improved
� Continue pain control with Tylenol and Dilaudid as needed (she has not taken any narcotics)
� Continue antibiotics as per ID
� Encourage OOB and IS
� Continue DVT PPx with subcu heparin
� Continue home meds
� Appreciate hospitalist/ID
- Clear liquids and advance as tolerated
Subjective Data
Subjective Data
Date of Service: September 24, 2023
She states she has less abdominal pain. She is having small bowel movements. She states she did become nauseated from a headache and phlegm from her sinusitis. At present she is hungry.
Objective Data
-
Vital Signs
Temp Pulse Resp BP Pulse Ox
98.1 F 79 18 135/82 98
09/24/23 07:32 09/24/23 07:32 09/24/23 07:32 09/24/23 07:30 09/24/23 08:00
Intake & Output
09/23/23 09/24/23 09/25/23
06:59 06:59 06:59
Intake Total 2820 / 2820
Output Total 1101 / 1101 400 / 400
Balance 1719 / 1719 -400 / -400
Intake:
Oral fluids 20 / 20
IV fluids (Total) 2400 / 2400
D5/0.45%NSS with KCL 10 MEQ 10 2400 / 2400
meq In 1,000 ml @ 100 mls/hr IV
.Q10H [facility] Rx#:[id number]
IV piggybacks 400 / 400
Output:
Urine, Voided 1101 / 1101 400 / 400
Other:
Number of approximated MODERATE 3
amounts of urine
Lab Results
09/24/23 03:52
09/24/23 12:00
Physical Exam
-
General: No Acute Distress
Abdomen: Soft, Non Distended and Tender (Minimal, left lower quadrant)
Extremities: No Calf Tenderness
[2023-09-24 15:13] VITALS: BP 142/91
[2023-09-24] MEDS: NSS IV (17:48)
--- NOTE | 2023-09-24 18:00 | PTCARENOTE ---
Pt received this am with c/o of mild tenderness with palpation in right lower quadrant. Denies any nausea today. Tolerating clear liqs then full liqs for dinner. Pt states she still had a small amount of loose stool at times. OOB ambulating in the
hallway.
[2023-09-24 23:06] VITALS: BP 125/69
--- NOTE | 2023-09-25 02:38 | PTCARENOTE ---
Patient denies any pain or nausea. States she is tolerating full liquid diet but still having some loose stools. Ambulating independently in room without difficulty. Can make needs known. Call trejo within reach.
[2023-09-25 06:00] VITALS: BMI 33.7
[2023-09-25 06:01] LABS: Hematocrit 33.3 % (37.0-47.0); Hemoglobin 11.6 g/dL (12.0-16.0); Mean Corp Hgb Conc. 34.8 g/dL (33.0-37.0); Mean Corpuscular Hgb 29.6 pg (27.0-31.0); Mean Corpuscular Volume 84.9 fL (81.0-99.0); Mean Platelet Volume 9.5 fL (7.4-10.4); Platelet Count 217 10^3/uL (130-400); Red Blood Cell Count 3.92 10^6/uL (4.20-5.40); Red Cell Dist. Width 13.2 % (11.5-14.5); White Blood Cell Count 8.9 10^3/uL (4.8-10.8)
[2023-09-25 06:25] LABS: ALT (SGPT) 23 U/L (0-35); AST (SGOT) 31 U/L (14-36); Albumin 2.9 g/dl (3.5-5.0); Alkaline Phosphatase 119 U/L (38-126); Blood Urea Nitrogen 7 mg/dl (7-17); Carbon Dioxide 23 mmol/L (22-30); Chloride 105 mmol/L (98-107); Estimated Creatinine Clearance 93 ml/min; Glucose 104 mg/dl (70-99); Potassium 3.6 mmol/L (3.5-5.1); Sodium 133 mmol/L (135-145); Total Bilirubin 0.5 mg/dl (0.2-1.3); Total Protein 5.4 g/dl (6.3-8.2); eGFR > 60.00
--- NOTE | 2023-09-25 08:00 | PTCARENOTE ---
Assumed care of pt from prev nsg shift; Pt AAOx3 w/no c/o of abd pain or N/V. Pt's VS stable w/HR in the 70's and BP elevated, but pt reports not taking BP med since arrival. BP this AM 156/86. This RN to advise Dr Christianson, the hospitalist seeing pt.
Pt tolerating full liquid diet overnight & anticipating low residue diet soon. Plan of care ongoing.
[2023-09-25 08:31] VITALS: BP 156/86
--- NOTE | 2023-09-25 08:48 | W.PN.CRS1 ---
Today's Communication / Plan
-
Advance to low residue diet.
Dispo as per primary team.
Assessment/Plan
-
68-year-old female with PMH of HTN, GERD who presents with abdominal pain associated with nausea, temp of 100.1, WBC 15.4, CT showing acute diverticulitis with 2.4 cm collection, concerning for abscess versus large diverticulum, being treated
nonoperatively with bowel rest and IV antibiotics
AFVSS
WBC normal
� Diverticulitis with likely 2.4 cm abscess (versus large diverticulum); continue nonoperative management, no acute surgical intervention currently indicated
�clinically improved
� Ok for discharge from a surgical standpoint.
Low residue diet until seen in the office.
Antibiotics as per ID.
Subjective Data
Subjective Data
Date of Service: September 25, 2023
Minimal discomfort and tolerating full liquids. She is moving her bowels.
Objective Data
-
Vital Signs
Temp Pulse Resp BP Pulse Ox
99.5 F 74 20 156/86 96
09/25/23 08:31 09/25/23 08:31 09/25/23 08:31 09/25/23 08:31 09/25/23 08:31
Intake & Output
09/24/23 09/25/23 09/26/23
06:59 06:59 06:59
Output Total 400 / 400
Balance -400 / -400
Output:
Urine, Voided 400 / 400
Other:
Number of approximated MODERATE 3
amounts of urine
Lab Results
09/25/23 05:50
09/25/23 05:50
Physical Exam
-
General: No Acute Distress
Abdomen: Soft, Non Distended and Non Tender
--- NOTE | 2023-09-25 08:51 | W.PN.HOSP.TC ---
Addendum entered and electronically signed by Perfecto Christianson MD 09/25/23 16:31:
Read, reviewed, and agree. See same day progress note for additional details. Time spent coordinating care, DC planning, review of DC plan of care with resident, transition of care, review of records in EMR, med rec, consults, notes, d/w
consultants, nursing, family, and CM 35 mins.
Patient was on combination of valsartan and hydrochlorothiazide and potassium supplements. She says her potassium supplements was more for hypo-hypokalemia associated with the episode of TGA and not related to her diuretics.
She had hyponatremia issues and she has hypokalemia issues. Advised hydrochlorothiazide is not a good choice and to continue with valsartan which should be suffice at this point for hypertension management I feel. She is going to be on combination
of valsartan in potassium supplements so advised her to get a repeat BMP make sure there is no hyperkalemia issues. She has a longstanding history of hypokalemia.
Advised to follow with PCP in regards to her hypertension and potassium issues.
She has tolerated diet . Discussed with the ID today who recommends 28 days of antibiotics. She will follow-up with the colorectal surgery upon discharge
Original Note:
Documented by User: oSfy Paez MD, Resident 09/25/23 11:22
Today's Communication/Plan
-
Discharge today on p.o. Augmentin
Assessment / Plan
Assessment / Plan
PLAN:
# Acute sigmoid diverticulitis associated with abscess
-CT abdomen pelvis shows acute sigmoid diverticulitis with possible small accompanying abnormal focal fluid collection
-IV fluids
-Levaquin/Flagyl d/c per ID
-Low residue diet
-WBC count trending well. 8.9 8. Monitor
-Colorectal cleared patient for discharge. Discharge today on low residue diet
# Urinary tract infection
-Urinalysis shows greater than 100 WBC
-Urine culture showed E. coli resistant to cipro, sensitive to penicillin and cephalosporins which the pt noted allergies to -- ID consulted -- ID assessed allergy history -- trial dose okay--removed allergy from allergy list --discharge today on
p.o. Augmentin per ID
-Levaquin/Flagyl d/c per ID
#Headache
-Pt has history of sinus headache and caffeine use --headache resolved after drinking coffee
#Elevated Cr
-resolved
-Monitor BMP
#Electrolyte imbalance
-Continue Kcl at home -- discharge with instructions to repeat BMP in one week with outpatient provider to assess electrolyte levels
-Monitor BMP
#Essential hypertension
-episode of hypotension this 09/21 -- hold valsartan/hydrochlorothiazide -- now stable -- restart pt on valsartan d/c HTCZ -- follow up in outpatient in one week to evaluated K levels and BP
#GERD
-Continue omeprazole
Full code
DVT prophylaxis�Heparin
N.p.o.
Anticipated Discharge: Today
Subjective/Interval History
-
Date of Service: September 25, 2023
Objective Data
-
Labs:
Laboratory Results
09/25/23
05:50
WBC 8.9
Hgb 11.6 L
Hct 33.3 L
Plt Count 217
Sodium 133 L
Potassium 3.6
Chloride 105
Carbon Dioxide 23
BUN 7
Creatinine 0.6
Glucose 104 H
Calcium 9.0
Total Bilirubin 0.5
AST 31
ALT 23
Alkaline Phosphatase 119
Vital Signs:
Vital Signs
Temp Pulse Resp BP Pulse Ox
99.5 F 74 20 156/86 96
09/25/23 08:31 09/25/23 08:31 09/25/23 08:31 09/25/23 08:31 09/25/23 08:31
I&O
09/24/23 09/25/23 09/26/23
06:59 06:59 06:59
Output Total 400 / 400
Balance -400 / -400
Review of Systems
-
History Source: Patient
EENT: Reports No Symptoms Reported
Respiratory: Reports No Symptoms
Cardiac: Reports No Symptoms
Abdomen/GI: Reports Abdominal Pain (RLQ mild pain); Denies Nausea or Vomiting
Genitourinary: Reports No Symptoms
Neuro: Reports No Symptoms; Denies Headache
Physical Exam
-
Respiratory: Clear to Auscultation
Cardiac: Regular Rhythm and S1/S2
GI: Soft, Nondistended, Normal Bowel Sounds and Tender (Slight tenderness with palpation of RLQ)
Musculoskeletal: No Edema
Skin: Warm and Dry
Neuro: AO x 3
Psych: Calm

Documented by User: Perfecto Christianson MD 09/25/23 16:29
Assessment / Plan
Assessment / Plan
PLAN:
# Acute sigmoid diverticulitis associated with abscess
-CT abdomen pelvis shows acute sigmoid diverticulitis with possible small accompanying abnormal focal fluid collection
-IV fluids
-Levaquin/Flagyl d/c per ID
-Low residue diet
-WBC count trending well. 8.9 8. Monitor
-Colorectal cleared patient for discharge. Discharge today on low residue diet
# Urinary tract infection
-Urinalysis shows greater than 100 WBC
-Urine culture showed E. coli resistant to cipro, sensitive to penicillin and cephalosporins which the pt noted allergies to -- ID consulted -- ID assessed allergy history -- trial dose okay--removed allergy from allergy list --discharge today on
p.o. Augmentin per ID
-Levaquin/Flagyl d/c per ID
#Headache
-Pt has history of sinus headache and caffeine use --headache resolved after drinking coffee
#Elevated Cr
-resolved
-Monitor BMP
#Electrolyte imbalance - hypokalemia and hyponatremia
-Continue Kcl at home -- discharge with instructions to repeat BMP in one week with outpatient provider to assess electrolyte levels
-Monitor BMP
#Essential hypertension
-episode of hypotension this 09/22 87/56 -- hold valsartan/hydrochlorothiazide -- now stable -- restart pt on valsartan d/c HTCZ -- follow up in outpatient in one week to evaluated K levels and BP
#GERD
-Continue omeprazole
Full code
DVT prophylaxis�Heparin
[2023-09-25] MEDS: PROTONIX 40 MG PO (10:06)
[2023-09-25] MEDS: AUGMENTIN 875 MG/125 MG 1 TABLET PO (10:07)
[2023-09-25] MEDS: ASPIR LOW (ENTERIC COATED) 81 MG PO (10:07)
[2023-09-25] MEDS: HEPARIN 5000 UNITS SC (10:07)
--- NOTE | 2023-09-25 11:22 | CM ---
CM following for DC planning needs.
Reviewed DC plan. Antic. no needs at time of DC.
Will follow.
[2023-09-25 11:50] VITALS: BP 131/77
[2023-09-25] MEDS: DIOVAN 320 MG PO (11:51)
--- NOTE | 2023-09-25 13:27 | PTCARENOTE ---
Discussed D/C instructions w/pt, including low residue/low fiber diet information. IV line removed & pt showered before leaving. Pt escorted out via wheelchair by staff w/ providing transportation.
--- NOTE | 2023-09-25 17:17 | W.DCSUMMARY ---
Discharge Summary
Discharge Data
Date of Admission: 09/21/23
Date of Discharge: 09/25/23
-
Pending Results: No
Hospital Course
Primary diagnosis:
� Acute sigmoid diverticulitis associated with abscess
� Urinary tract infection
� Headache
� Elevated creatinine
� Electrolyte imbalance
- Essential hypertension
Secondary diagnoses:
� GERD
Hospital Course:
Poornima is a 68-year-old female who presented to the ED with lower abdominal pain that started 2 days prior and continued to worsen. She also complained of burning with urination. She was febrile, leukocytosis of 15.4, hypertensive and urinalysis
positive for infection. CT revealed acute diverticulitis with abscess 2.4 cm. Patient was admitted and given IV fluid and antibiotics. The next morning the patient's electrolytes were imbalanced and her creatinine was elevated. Overnight her bp
dropped for a short period of time. Anti-hypertensive medications were held and IV fluids were given. Blood pressure improved. The patient was evaluated by colorectal surgery and based on her clinical presentation and size of the abscess they
recommended medical management at this time. Later on in the day the patient's electrolytes balanced out and patient was more clinically stable. Her leukocytes continue to trend downward. Urine culture came back positive for E. coli sensitive to
antibiotics the patient listed as having allergies to. Infectious disease was consulted and her allergy to Augmentin was challenged. Patient responded well. Patient also complained of a headache while at the hospital. She was an avid caffeine
drinker and has a history of sinus headaches. Once patient was able to have a clear liquid diet and start drinking coffee again her headache went away.
Today, colorectal cleared patient to go home on antibiotics per ID recommendations. In addition patient's hydrochlorothiazide was discontinued due to electrolyte imbalance. Losartan continued. Patient recommended to follow-up with PCP and repeat
BMP in 1 week. Patient will follow-up with colorectal in the outpatient setting.
Discharge Plan
-
Patient Disposition: Home (Routine Discharge)
Discharge Diagnosis/Procedures: Acute sigmoid diverticulitis associated with abscess
Condition: Good
Diet: Low Residue
Activity: As tolerated
Driving Restrictions: As prior to admission
Bathing Restrictions: None
Activity Restrictions/Additional Instructions:
If you have any increased pain, fever, nausea, vomiting, please come back to be seen by someone.
Referrals:
Brant Rene MD [Active] - in two to three weeks
Josey Snyder MD [Family Provider] - in one week
Additional Discharge Medication Instructions: Repeat BMP in one week to check on K levels
Prescriptions:
New
amoxicillin-pot clavulanate 875-125 mg Tablet
1 tab PO BID Qty: 56 0RF
valsartan [Diovan] 320 mg tablet
320 mg PO DAILY Qty: 30 0RF
Continued
fluticasone propionate 1 SPRAY spray,suspension
1 spray intranasal DAILYPRN PRN (Reason: allergies)
acetaminophen 325 MG tablet
650 mg PO Q4HPRN PRN (Reason: GARCIA, mild pain, or temp >100.4F) 0RF
cholecalciferol (vitamin D3) 2,000 UNITS tablet
2,000 units PO DAILY 0RF
aspirin [Adult Aspirin Regimen] 81 MG tablet,delayed release (DR/EC)
81 mg PO DAILY Qty: 1 0RF
therapeutic multivitamin Tablet
1 tab PO DAILY
omeprazole 20 mg Tablet,Delayed Release (Dr/Ec)
20 mg PO DAILY
potassium chloride 20 mEq Tablet Extended Release
20 meq PO DAILY
Discontinued
valsartan-hydrochlorothiazide 320-25 mg Tablet
1 tab PO DAILY
Discharge Orders:
Discharge Patient (As Directed); Ordered 09/25/23
Ordered By: Sofy Paez
Care Plan Goals
Care Plan Goals:
Problem: Readiness for enhanced knowledge related to diagnosis and treatment plan
Goal: Understand your diagnosis and treatment plan needs, including medications if applicable.
Instructions: Know your diagnosis, underlying causes and treatment plan options, including medications if applicable. Consult with your health care team to learn about your diagnosis and treatment plan, including medications if applicable.
Discharge Date and Time
Discharge Date/Time: 09/25/23 13:40
Print Language: CROATIAN
== END 2023-09-25 13:40 | disposition home or self-care (01) | DRG 872 ==
LOC: IVU 23:37
PROVIDERS: Nurse Practitioner; Physician Assistant Medical; ADMITTING PHYSICIAN Hospitalist; ATTENDING PHYSICIAN Internal Medicine; CONSULT PHYSICIAN Student in an Organized Health Care Education/Training Program; EMERGENCY PHYSICIAN Emergency Medicine; FAMILY PHYSICIAN Family Medicine; OTHER PHYSICIAN Surgery
DX: A41.9 Sepsis, unspecified organism (principal); N39.0 Urinary tract infection, site not specified; K57.20 Diverticulitis of large intestine with perforation and abscess without bleeding; N17.9 Acute kidney failure, unspecified; E87.1 Hypo-osmolality and hyponatremia; I10 Essential (primary) hypertension; K21.9 Gastro-esophageal reflux disease without esophagitis; E87.6 Hypokalemia
CPT/HCPCS: 74177; 80048; 80053; 81003; 81015; 83605; 83690; 83935; 84300; 85025; 85027; 86803; 87077; 87086; 87186; 93005; 94640; 96361; 96365; 96375; 99285; J3480; Q9967

== ENCOUNTER → 2023-10-06 08:23 | Outpatient (REF) | payer MEDICARE, BC, SELFPAY ==
[2023-10-06 12:26] LABS: Blood Urea Nitrogen 13 mg/dl (7-17); Calcium 9.8 mg/dl (8.4-10.2); Carbon Dioxide 24 mmol/L (22-30); Chloride 103 mmol/L (98-107); Glucose 99 mg/dl (70-99); Potassium 4.3 mmol/L (3.5-5.1); Sodium 135 mmol/L (135-145); eGFR > 60.00
== END ==
LOC: HWLAB 08:23
PROVIDERS: ATTENDING PHYSICIAN Internal Medicine; FAMILY PHYSICIAN Family Medicine
DX: E87.6 Hypokalemia (principal)
CPT/HCPCS: 36415; 80048

== ENCOUNTER → 2024-06-06 08:46 | Outpatient (REF) | payer MEDICARE, BC, SELFPAY | LOC: HWWDC 08:46 | PROVIDERS: ATTENDING PHYSICIAN Obstetrics & Gynecology Gynecology; FAMILY PHYSICIAN Family Medicine | DX: Z12.31 Encounter for screening mammogram for malignant neoplasm of breast (principal) | CPT/HCPCS: 77063; 77067 ==

== ENCOUNTER → 2024-08-22 08:30 | Outpatient (REF) | payer MEDICARE, BC, SELFPAY ==
[2024-08-22 10:19] LABS: ALT (SGPT) 20 U/L (0-35); AST (SGOT) 20 U/L (14-36); Albumin 4.3 g/dl (3.5-5.0); Alkaline Phosphatase 115 U/L (38-126); Blood Urea Nitrogen 19 mg/dl (7-17); Calcium 9.7 mg/dl (8.4-10.2); Carbon Dioxide 23 mmol/L (22-30); Chloride 105 mmol/L (98-107); Glucose 106 mg/dl (70-99); HDL Cholesterol 49 mg/dl; LDL Cholesterol, Calculated 112 mg/dl; Potassium 4.1 mmol/L (3.5-5.1); Sodium 137 mmol/L (135-145); Total Protein 7.1 g/dl (6.3-8.2); Very Low Density Lipoprotein 32 mg/dl (0-30); eGFR > 60.00
[2024-08-22 11:07] LABS: Glycohemoglobin (HgbA1c) 5.6 % (4.0-5.6)
== END ==
LOC: HWLAB 08:30
PROVIDERS: ATTENDING PHYSICIAN Family Medicine
DX: I10 Essential (primary) hypertension (principal); R73.9 Hyperglycemia, unspecified; E87.6 Hypokalemia; E78.1 Pure hyperglyceridemia
CPT/HCPCS: 36415; 80053; 80061; 83036

== ENCOUNTER → 2024-10-21 07:53 | Outpatient (REF) | payer MEDICARE, BC, SELFPAY | LOC: HWRAD 07:53 | PROVIDERS: ATTENDING PHYSICIAN Family Medicine | DX: E78.00 Pure hypercholesterolemia, unspecified (principal); I10 Essential (primary) hypertension | CPT/HCPCS: 75571 ==